=== PATIENT | female | born 1970 | race African-American/Black ===

== ENCOUNTER 2024-11-01 19:32 | Emergency (ER) | payer OTHER ==
[~2024-11-01] VITALS: Ht 152.4 cm; Wt 70.3 kg
[2024-11-01 19:39] VITALS: PULSE 59; RESP 18; TEMP 97.8
[2024-11-01] MEDS ORDERED: ACETAMINOPHEN-1 EAC4 PO (20:47)
[2024-11-01] MEDS ORDERED: MOTRIN800 MG PO (20:47)
[2024-11-01 21:00] VITALS: BP 167/93; PULSE 59; RESP 18; TEMP 97.8; O2SAT 98
== END 2024-11-01 21:00 | disposition home or self-care (01) ==
LOC: FSED 19:40
DX: S93.492A Sprain of other ligament of left ankle, initial encounter (principal); X50.1XXA Overexertion from prolonged static or awkward postures, initial encounter; Y93.01 Activity, walking, marching and hiking; Y92.89 Other specified places as the place of occurrence of the external cause
CPT/HCPCS: 99283